=== PATIENT | female | born 1935 | race Caucasian/White ===

== ENCOUNTER → 2017-06-04 | Outpatient (CLI) | payer MEDICARE, OTHER ==
[~2017-06-04] MED LIST: ASPIRIN LO-DOSE81 MG PO; CIPRO250 M1 PO; FERROUS GLUCONATE PO; FISH OIL 1,2001 EACH PO; HYDROCODON-ACE1 EAC4 PO; LISINOPRIL-HCT1 EACH PO; NEXIUM40 MG PO; POTASSIUM CHLOR8 MEQ PO; STOOL SOFTENER250 MG PO; SUPER CALCIUM600 MG PO; TOVIAZ8 MG PO; VITAMIN D-32000 UNI1 PO; VITAMIN D250000 UNIT PO; ZOCOR40 MG PO; ZYRTEC10 MG PO
== END | disposition disaster alternative care site (69) ==
LOC: GBCOE 11:56
DX: Z12.31 Encounter for screening mammogram for malignant neoplasm of breast (principal); Z85.3 Personal history of malignant neoplasm of breast; Z90.12 Acquired absence of left breast and nipple
CPT/HCPCS: G0202

== ENCOUNTER → 2017-07-19 | Outpatient (CLI) | payer MEDICARE, OTHER ==
[2017-07-19 08:25] LABS: CREATININE 0.9 mg/dL (0.5-1.1)
== END | disposition disaster alternative care site (69) ==
LOC: GLAB 07:47 → GRAD 09:00
PROVIDERS: Surgery
DX: M27.2 Inflammatory conditions of jaws (principal); M86.9 Osteomyelitis, unspecified